=== PATIENT | female | born 1970 | race Asian ===

== ENCOUNTER 2024-07-26 11:32 | Emergency (ER) | payer OTHER ==
[~2024-07-26] VITALS: Ht 162.6 cm; Wt 65.2 kg
[2024-07-26 11:35] VITALS: TEMP 36.4; O2SAT 100
[2024-07-26] MEDS: IOHEXOL-350 100 ML BOTTLE ONE (12:17)
[2024-07-26 12:32] LABS: CHLORIDE 104 mEq/L (98-107); POTASSIUM 3.9 mEq/L (3.5-5.1); SODIUM 140 mEq/L (136-145)
[2024-07-26 12:33] LABS: CALCIUM 8.9 mg/dL (8.7-10.4); CARBON DIOXIDE 25 mEq/L (21-32)
[2024-07-26 12:38] LABS: CREATININE 0.6 mg/dL (0.6-1.0); GLUCOSE 146 mg/dL (70-105); UREA NITROGEN BLOOD 6 mg/dL (9-23)
[2024-07-26 12:40] LABS: ETHANOL BLOOD < 10 mg/dL (<10)
[2024-07-26 12:50] LABS: BASOPHILS % 0.7 % (0.0-2.0); EOSINOPHILS % 3.8 % (0.0-5.0); HEMATOCRIT. 43.9 % (36.0-48.0); HEMOGLOBIN. 14.8 g/dL (12.0-16.0); LYMPHOCYTES % 28.2 % (20.0-50.0); MEAN CORPUSCULAR HEMOGLOBIN 30.9 pg (28.0-32.0); MEAN CORPUSCULAR HGB CONC 33.7 g/dL (31.0-37.0); MEAN CORPUSCULAR VOLUME 91.6 fL (81.0-99.0); MEAN PLATELET VOLUME 8.9 fl (7.4-10.4); MONOCYTES % 6.3 % (2.0-8.0); PLATELET 240 x1000/uL (130-400); RED BLOOD CELL COUNT 4.79 mill/uL (4.2-5.4); RED CELL DISTRIBUTION WIDTH 13.2 % (11.6-14.6); WHITE BLOOD COUNT 4.5 x1000/uL (4.5-11.0)
[2024-07-26 13:43] LABS: PROTHROMBIN TIME 10.3 sec (9.6-11.0)
[2024-07-26] MEDS ORDERED: ACETAMINOPHEN 325MG TABLET PO PRN (14:00)
[2024-07-26] MEDS ORDERED: ZOLPIDEM TARTRATE 5MG TABLET PO PRN (14:00)
[2024-07-26] MEDS ORDERED: ONDANSETRON HCL 4MG/2ML INJ IV PRN (14:00)
[2024-07-26] MEDS ORDERED: HYDROCODONE/ACETAMINOPHEN 5/325MG TABLET PO PRN (14:00)
[2024-07-26] MEDS: ENOXAPARIN 40MG/0.4ML SYR SUBCUT SCH (14:15)
[2024-07-26 14:17] VITALS: BP 171/104; PULSE 109; RESP 22; O2SAT 99
[2024-07-26] MEDS: CLONIDINE 0.1MG TABLET PO PRN (14:38)
[2024-07-26] MEDS ORDERED: ATORVASTATIN CALCIUM 40MG TABLET PO SCH (21:00)
[2024-07-27] MEDS ORDERED: CLOPIDOGREL 75MG TABLET PO SCH (09:00)
[2024-07-27] MEDS ORDERED: ASPIRIN 81MG EC TABLET PO SCH (09:00)
[2024-07-27] MEDS ORDERED: PANTOPRAZOLE SODIUM 40 MG/VIAL IV SCH (09:00)
== END 2024-07-26 15:47 | disposition short-term general hospital (02) ==
LOC: ER 11:32 → CANBEDREQ 13:18 → ER 15:47
DX: R20.0 Anesthesia of skin (principal); R53.1 Weakness; E11.9 Type 2 diabetes mellitus without complications; E78.00 Pure hypercholesterolemia, unspecified; I10 Essential (primary) hypertension; Z86.73 Personal history of transient ischemic attack (TIA), and cerebral infarction without residual deficits; Z88.0 Allergy status to penicillin
CPT/HCPCS: 80048; 80320; 82962; 85025; 85610; 36415; 71045; 70496; 70498; 70450; 93005; 99291; Q9967; J1650; G0480